=== PATIENT | male | born 1990 | race Caucasian/White ===

== ENCOUNTER 2021-11-02 04:43 | Emergency (ER) | payer OTHER ==
[2021-11-02] MEDS ORDERED: Ondansetron ODT 4 MG TAB ONE (05:20)
[2021-11-02] MEDS ORDERED: Morphine 4 MG/ML VIAL ONE (05:20)
== END 2021-11-02 05:35 | disposition home or self-care (01) ==
LOC: NAV ERS 04:43
DX: M25.512 Pain in left shoulder (principal); F17.210 Nicotine dependence, cigarettes, uncomplicated
CPT/HCPCS: 96372; 99283; J2270; Q0162